=== PATIENT | male | born 1985 | race Caucasian/White ===

== ENCOUNTER 2017-02-08 19:58 | Emergency (ER) | payer MEDICAID ==
[~2017-02-08] VITALS: Ht 185.4 cm; Wt 136.1 kg
[~2017-02-08 19:58] MED LIST: CIPRO 500MG TA500 MG PO; DEMEROL HYDROCH50 MG PO; FLOMAX0.4 MG PO; NORCO 325 MG-51 TAB PO; PERCOCET 10 MG1 EACH PO; PHENERGAN 25MG.25 M1 PO; PREDNISONE 10MG10 MG PO; PROMETHAZINE HC25 M1 PO
[2017-02-08] MEDS ORDERED: PREDNISONE 20MG20 MG PO (20:28)
[2017-02-08] MEDS ORDERED: KEFLEX 500MG.500 MG PO (20:28)
--- NOTE | 2017-02-08 20:32 | Emergency Room Report ---
History of Present Illness Time Seen by 2026 Presenting Problem in Triage Pt arrived:Walked Presenting Problem:C/O BUG BITE TO RIGHT SHOULDER THIS AM. C/O PAIN. ALSO REPORT 2 AREAS ON LEFT WRIST Onset of symptoms date/time:02/08/17/ or onset unknown for:MEDICAL HX UNKNOWN Treatment Prior to Arrival: [employer]IAN Provided by: Sepsis Risk Assessment: Temp: 98.9 B/P: 175/105 MAP: 128 Pulse: 74 Resp: 18 Recent fever? N Clinical Suspician of Infection? N Mental Status: 1 - Regular (Normal Baseline) Sepsis Risk:Low Sepsis Risk Have you (or family members/close friends) recently traveled outside the [place]? N If Yes, where/when: Have you had exposure to infectious disease within the past month? N TB? Other? Specify: Source patient, RN notes reviewed, family, old records Exam Limitations no limitations Comment insect bite lt wrist and rt scapular insect bite - no resp sx Cardiac Chest Pain Chest pain indicative of cardiac No Timing/Duration this evening Severity moderate ALLERGIES Coded Allergies: No Known Allergies (11/15/16) Home Medications Reported Medications No Known Home Medications History Medical History General CAD? No Angina: No RI: No Hypertension? No Hyperlipidemia? No CHF? No DVT? No PE? No COPD? No Asthma? No Anemia? No GERD? No Gastric ulcers? No GI Bleed? No Hernia? No Thyroid Problems? No Hypothyroidism? No CVA? No Seizures? No Diabetes? No Renal Insuffiency? No End Stage Renal Disease? No UTI? No Stones? No BPH? No GB Disease: No Nephritic Syndrome? No Asplenia? No Hepatitis? No Sickle Cell Disease? No Arthritis? No Migraines? No Cataracts? No Glaucoma? No MRSA? No HIV? No TB? No Anxiety? No Depression? No Cancer? No Immunization Hx DT/Tetanus 5-10 YRS Surgical Hx Previous Surgery?N Social History Smoking Hx Smoker: Current Every Day Smoker Tobacco: Yes Type Cigarettes Packs/day < 1 Pack Alcohol Alcohol: No Drugs none Review of Systems All Other Systems Reviewed and Negative Constitutional denies fever Eyes denies drainage ENT denies: ear discharge. Respiratory denies cough Cardiovascular denies palpitations Gastrointestinal denies vomiting Genitourinary denies: frequency. Musculoskeletal denies joint pain, denies joint swelling Skin see HPI, denies rash, other Psychiatric/Neurological denies headache, denies seizure Physical Exam Vital Signs Vital Signs Date Time Temp Pulse Resp B/P Pulse O2 O2 Flow FiO2 Ox Delivery Rate 02/08 2001 98.9 74 18 175/105 97 - WBC >12,000 or <4,000 or 10% bands? 2 or more SIRS Criteria Met? B/P:175/105 MAP:128 Creatinine >2.0? UA output<0.5ml/kg/hr for 2 hrs? Platelet count >100,000? Lactate >2.0mmol/1? INR >1.2 or PTT > than 60 sec? Evidence of Organ Dysfunction? Provider documented clinical suspician of infection? N Sepsis Criteria Count: 0 Sepsis Risk: Low Sepsis Risk General Appearance no apparent distress Eye Exam - bilateral eye PERRL, bilateral eye EOMI Ear, Nose, Throat normal ENT inspection Neck supple Respiratory Status No: respiratory distress. Cardiovascular regular rate/rhythm Peripheral Pulses Pulses normal Yes Extremities normal inspection Strength 4 Upper Ext (L), 4 Upper Ext (R), 4 Lower Ext (L), 4 Lower Ext (R) Neurologic alert, enamel applier II-XII nml as tested, no motor/sensory deficits Reflexes Reflexes normal No Mental status normal mood/affect Skin 3 insect bites noted with warmth but no abscess Medical Decision Making LABS/Meds/Orders Pt receiving controlled substance in ED? No Departure Departure Time of Disposition 2026 Disposition DC Home or Self Care(routine) Clinical Impression Primary Impression: Insect bite Qualifiers: Encounter type: initial encounter Qualified Code: W57.XXXA - Bitten or stung by nonvenomous insect and other nonvenomous arthropods, initial encounter Condition STABLE Patient Instructions DI for Insect Bites and Stings Additional Instructions use meds and see pcp for follow up Discharge Counseling Counseled pt/family regarding diagnosis, medications/RX, follow up needs Prescriptions Current Visit Scripts CEPHALEXIN (Keflex 500MG Capsule) 500 MG PO Q8H #21 CAP Prednisone (Prednisone 20MG) 20 MG PO BID #12 TAB ED Critical Care Critical Care No at 2031
--- OUTSIDE RECORDS SUMMARY | 2017-02-08 20:34 | External Medical Summary Rpt ---
Author Author , Organization [employer] Address Unknown Phone Unavailable Purpose Continuity of Care Document - through 2016 Problems Code Diagnosis DOS Provider Status M25.511 PAIN IN RIGHT SHOULDER
--- OUTSIDE RECORDS SUMMARY | 2017-02-08 20:35 | External Medical Summary Rpt ---
Demographics Preferred Language Icelandic Marital Status Unknown Holiness Affiliation Unknown Race Unknown Ethnic Group Unknown Author Author , Organization [employer] Address Unknown Phone Unavailable Purpose Continuity of Care Document - through 2016 Immunization No patient found.
--- OUTSIDE RECORDS SUMMARY | 2017-02-08 20:35 | External Medical Summary Rpt ---
Author Author JENN Guerrero, [employer] Organization [employer] Address Unknown Phone Unavailable
--- OUTSIDE RECORDS SUMMARY | 2017-02-08 20:35 | External Medical Summary Rpt ---
Demographics Preferred Language Icelandic Marital Status Unknown Scientologist Affiliation Unknown Race Unknown Ethnic Group Unknown Author Author , Organization [employer] Address Unknown Phone Unavailable Purpose Continuity of Care Document - through 2016 Immunization No patient found.
[2017-02-08 20:39] VITALS: BP 147/103
== END 2017-02-08 21:01 | disposition home or self-care (01) ==
LOC: ER 19:58
DX: S40.261A Insect bite (nonvenomous) of right shoulder, initial encounter (principal); S60.861A Insect bite (nonvenomous) of right wrist, initial encounter

== ENCOUNTER 2017-03-15 19:19 | Inpatient (IN) | payer MEDICAID ==
[~2017-03-15] VITALS: Ht 185.4 cm; Wt 139.4 kg
[~2017-03-15 19:19] MED LIST changes: +KEFLEX 500MG.500 MG PO; +PREDNISONE 20MG20 MG PO
[2017-03-15 19:23] VITALS: BP 155/106
[2017-03-15 19:56] LABS: HEMOGLOBIN 17.7 g/dL (14.1-18.0); LYMPH # 2.8 K/mm3 (0.7-4.5); LYMPH % 39.4 % (10-50)
--- NOTE | 2017-03-15 20:07 | Emergency Room Report ---
History of Present Illness Time Seen by 2004 Presenting Problem in Triage Pt arrived:Walked Presenting Problem:PAIN IN LOWER BACK THAT RADIATES TO TESTICLES SINCE MONDAY. Onset of symptoms date/time:03/12/1701/21/2100 or onset unknown for: Treatment Prior to Arrival: [employer] Provided by: Sepsis Risk Assessment: Temp: 97.4 B/P: 155/106 MAP: 122 Pulse: 68 Resp: 20 Recent fever? N Clinical Suspician of Infection? N Mental Status: 1 - Regular (Normal Baseline) Sepsis Risk:Low Sepsis Risk Have you (or family members/close friends) recently traveled outside the [place]? N If Yes, where/when: Have you had exposure to infectious disease within the past month? N TB? Other? Specify: Comment Patient complains of RIGHT flank and right-sided abdominal pain that began on Monday. He says it feels like previous kidney stone that he had several years ago, which she had passed. He denies nausea, vomiting, fever, or urinary symptoms. No medications taken for the pain. Current pain is 8/10. Pain radiates to both testicles intermittently. He says he thinks he passed one stone earlier, but the pain never let up. ALLERGIES Coded Allergies: No Known Allergies (03/16/17) Home Medications Active Scripts CEPHALEXIN (Keflex 500MG Capsule) 500 MG PO Q8H #21 CAP Prov: 02/08/17 Prednisone (Prednisone 20MG) 20 MG PO BID #12 TAB Prov: 02/08/17 History Medical History General CAD? No Angina: No OR: No Hypertension? No Hyperlipidemia? No CHF? No DVT? No PE? No COPD? No Asthma? No Anemia? No GERD? No Gastric ulcers? No GI Bleed? No Hernia? No Thyroid Problems? No Hypothyroidism? No CVA? No Seizures? No Diabetes? No Renal Insuffiency? No End Stage Renal Disease? No UTI? No Stones? No BPH? No GB Disease: No Nephritic Syndrome? No Asplenia? No Hepatitis? No Sickle Cell Disease? No Arthritis? No Migraines? No Cataracts? No Glaucoma? No MRSA? No HIV? No TB? No Anxiety? No Depression? No Cancer? No Immunization Hx DT/Tetanus 5-10 YRS Surgical Hx Previous Surgery?N Social History Smoking Hx Smoker: Current Every Day Smoker Tobacco: Yes Type Cigarettes Packs/day 1 1/2 - 2 Packs Are you/the child exposed to second-hand smoke: Yes Alcohol Alcohol: No Review of Systems All Other Systems Reviewed and Negative Constitutional denies fever Gastrointestinal abdominal pain, denies nausea, denies vomiting Genitourinary denies: dysuria, frequency, hematuria. Physical Exam Vital Signs Vital Signs Date Time Temp Pulse Resp B/P Pulse O2 O2 Flow FiO2 Ox Delivery Rate 03/15 2326 97.2 66 18 135/81 93 03/15 2325 97.2 66 18 135/81 93 03/155 22 03/15 2241 97.4 55 22 150/102 95 03/15 2146 55 20 120/54 96 03/15 2144 20 03/15 2052 98.3 60 20 146/84 94 03/15 2041 20 03/15 2006 98.5 68 20 138/90 96 03/15 2002 20 03/15 1923 97.4 68 20 155/106 97 General Appearance no apparent distress, high BMI Eye Exam - bilateral eye normal exam, bilateral eye PERRL, bilateral eye EOMI Ear, Nose, Throat hearing grossly normal, normal ENT inspection Neck normal inspection, non-tender, supple, full range of motion Respiratory Status Yes: trachea midline, chest symmetrical, non tender chest. No: respiratory distress. Lung Sounds bilateral: normal breath sounds, lungs clear. Cardiovascular normal exam, regular rate/rhythm, no peripheral edema, no gallop, no JVD, no murmur, no rub, normal peripheral pulses Peripheral Pulses Pulses normal Yes Gastrointestinal normal bowel sounds, soft, no organomegaly, no guarding, no rebound, Generalized right-sided abdominal tenderness Back CVA tenderness (R) Extremities non-tender, normal range of motion, normal inspection Male Genitalia normal genitalia, no hernia, No tenderness or edema. Testicles in normal position. Neurologic alert, cleaner carpet and upholstery II-XII nml as tested, normal exam, oriented x 3 Mental status normal mood/affect Skin intact, normal color, warm/dry Medical Decision Making LABS/Meds/Orders Pt receiving controlled substance in ED? Yes Camron was queried for this patient? Yes Comment [id number] 1 rx. 10 norco on 11/15/16. Results/Orders Laboratory Tests 03/15/170: Urine Color YELLOW, Urine Appearance TURBID, Urine pH 6.0, Ur Specific [place] 1.025, Urine Protein NEGATIVE, Urine Ketones NEGATIVE, Urine Blood NEGATIVE, Urine Nitrate NEGATIVE, Urine Bilirubin NEGATIVE, Urine Urobilinogen 0.2, Ur Leukocyte Esterase NEGATIVE, Urine RBC NONE, Urine WBC NONE, Ur Squamous Epith Cells NONE, Urine Bacteria TRACE, Urine Glucose NEGATIVE 03/15/171944: BUN 9, Creatinine 0.8, Estimated Creat Clear 273 H, Estimated GFR (MDRD) 114 03/15/171944: Amylase 103, Lipase 1260 H 03/15/171944: Sodium 141, Potassium 3.9, Chloride 104, Carbon Dioxide 29, BUN 9, Creatinine 0.8, Estimated Creat Clear 273 H, Estimated GFR (MDRD) 114, Glucose 92, Calcium 9.4, Total Bilirubin 0.4, AST 23, ALT 40, Alkaline Phosphatase 91, Total Protein 8.3 H, Albumin 4.3, Globulin 4.0 H, Albumin/Globulin Ratio 1.1, WBC 7.2, RBC 5.50, Hgb 17.7, Hct 52.3 H, MCV 95.2, RDW 12.0, Plt Count 386, MPV 6.8 L, Gran % 50.4, Gran # 3.6, Lymphocytes % 39.4, Monocytes % 4.8, Eosinophils % 4.6, Basophils % 0.9, Lymphocytes # 2.8, Monocytes # 0.3, Eosinophils # 0.3, Basophils # 0.1, PUBS MCHC 33.8, MCH 32.2 H Current Medication Orders Sig/Caroline Start time Last Medication Dose Route Stop Time Status Admin Acetaminophen 650 MG Q4HP PRN 03/15 2300 UNV PO Hydromorphone HCl 1 MG Q4HP PRN 03/15 2300 UNV 03/16 IV 0039 Nicotine 21 MG DAILYP PRN 03/15 2300 UNV TD Ondansetron HCl 4 MG Q6HP PRN 03/15 2300 UNV IV Sodium Chloride 1,000 ML .Q6H40M 03/15 2300 UNV 03/15 IV 2355 Sodium Chloride 10 ML PRN PRN 03/15 2300 UNV IV Hydromorphone HCl 1 MG ONCE ONE 03/15 2245 DC 03/15 IV 03/15 Hydromorphone HCl 0 .STK-MED ONE 08/09 2244 DC .ROUTE Morphine Sulfate 4 MG ONCE ONE 03/15 2145 DC 03/15 IV 03/15 Morphine Sulfate 0 .STK-MED ONE 03/15 2143 DC .ROUTE Morphine Sulfate 4 MG ONCE ONE 03/15 2045 DC / IV 03/15 Ondansetron HCl 4 MG ONCE ONE 03/15 2045 DC 03/15 IV 03/15 Ondansetron HCl 0 .STK-MED ONE 03/15 2040 DC .ROUTE Morphine Sulfate 0 .STK-MED ONE 03/15 2039 DC .ROUTE Sodium Chloride 1,000 ML .Q1H1M 03/15 2030 DC 03/15 IV 03/15 Sodium Chloride 1,000 ML .STK-MED ONE 03/15 2020 DC IV Ketorolac 30 MG ONCE ONE 03/15 2000 DC 03/15 Tromethamine IV 03/15 Ketorolac 0 .STK-MED ONE 03/15 2000 DC Tromethamine .ROUTE Diatrizoate Meglum/ 30 ML ONCE ONE 03/15 1945 DC Diatrizoate Sod PO 03/15 1946 Diatrizoate Meglum/ 15 ML ONCE ONE 03/15 1945 DC Diatrizoate Sod PO 03/15 194 Orders Procedure Date/time Status DIET-NOTHING BY MOUTH 03/16 B Active LIPID PROFILE 03/16 06 Active LIPASE 03/16 06 Active AMYLASE 03/16 600 Active US GALLBLADDER (ABD LTD) 03/16 UNK Active PT IS SMOKER-DO SMOKE CESSAT. 03/15 2317 Active Decision to admit 03/15 2253 Active URINALYSIS/COMPLETE 03/15 2215 Complete CHEM 12 PROFILE 03/[address] ABD & PELVIS W/O CONTRAST 03/[address] ABD/PELVIS REQ 03/15 1934 Active IV SALINE LOCK 03/15 1934 Active LIPASE 03/15 1934 Complete CREATININE 03/15 1934 Complete CBC WITH AUTO DIFF 03/15 1934 Complete BUN 03/15 1934 Complete AMYLASE 03/15 1934 Complete ADMIT PATIENT 03/15 UNK Active VITAL SIGNS 03/15 UNK Active POM NURSE JESSIKA HOSE ORDER 03/15 UNK Active IV SALINE LOCK 03/15 UNK Active RECORD I & O 03/15 UNK Active CODE STATUS 03/15 UNK Active PATIENT ACTIVITY ORDER 03/15 UNK Active XRAY/CT/US XRAY/CT/US CT abdomen, pelvis Comment CT scan interpreted by ad radiologist. Faxed report received and reviewed: No acute findings. No ureteral calculi or hydronephrosis. Normal appendix. Normal pancreas and gallbladder. Progress - 10:40 PM: Workup negative except for elevated lipase. Patient is complaining of pain in his scrotum bilaterally. Unable to achieve pain control in the emergency department, he will need to be admitted. 10:48 PM: I have discussed the case with Dr. Castillo who agrees to admit the patient to the hospital. We discussed the patient's clinical information, including history, exam, laboratory and radiology results and ED course. Per hospital procedure, I will write temporary bridge inpatient orders on the patient. Specific orders requested by the admitting physician: IV fluids, recheck pancreatic enzymes, lipid profile. Gallbladder ultrasound Departure Departure Disposition Still a Patient Clinical Impression Primary Impression: Acute pancreatitis Qualifiers: Pancreatitis type: unspecified pancreatitis type Acute pancreatitis complication: no infection or necrosis Qualified Code: K85.90 - Acute pancreatitis without necrosis or infection, unspecified Secondary Impressions: Groin pain Qualifiers: Laterality: unspecified laterality Qualified Code: R10.30 - Lower abdominal pain, unspecified Right flank pain Right sided abdominal pain Condition STABLE ED Critical Care Critical Care No at 2986
[2017-03-15 22:20] LABS: URINE BILIRUBIN - DIPSTICK NEGATIVE (NEG); URINE BLOOD NEGATIVE (NEG)
[2017-03-16] VITALS (9 sets, daily range): BP systolic 124–150; BP diastolic 64–92
--- NOTE | 2017-03-16 07:14 | PHARMACY CLINIC NOTE ---
Patient Demographics Patient Demographics Admission date: 03/15/17 Date: 03/16/17 Time: 0714 Allergies Coded Allergies: No Known Allergies (03/16/17) HEIGHT- FT: 6 IN: 1.00 K.368 VTE General Information Labs: Laboratory Tests 03/15 1945 Hematology Hgb (14.1 - 18.0 g/dL) 17.7 Hct (42.0 - 52.0 %) 52.3 H Plt Count (142 - 424 K/mm3) 386 Disclaimer The following section includes nursing documentation that has been pulled in for pharmacy review. Patient's VTE score: 1 Patient's VTE Risk: VERY LOW RISK Clinical trial participant? No VTE prophylaxis [facility] 0371 VTE prophylaxis ordered? Yes Type of prophylaxis/treatment: JESSIKA at 0714
--- NOTE | 2017-03-16 07:14 | PHARMACY CLINIC NOTE ---
Patient Demographics Patient Demographics Admission date: 03/15/17 Date: 03/16/17 Time: 0714 Allergies Coded Allergies: No Known Allergies (03/16/17) HEIGHT- FT: 6 IN: 1.00 K.368 VTE General Information Labs: Laboratory Tests 03/15 1945 Hematology Hgb (14.1 - 18.0 g/dL) 17.7 Hct (42.0 - 52.0 %) 52.3 H Plt Count (142 - 424 K/mm3) 386 Disclaimer The following section includes nursing documentation that has been pulled in for pharmacy review. Patient's VTE score: 1 Patient's VTE Risk: VERY LOW RISK Clinical trial participant? No VTE prophylaxis [facility] 0371 VTE prophylaxis ordered? Yes Type of prophylaxis/treatment: JESSIKA at 0714
--- NOTE | 2017-03-16 08:30 | HISTORY AND PHYSICAL REPORT ---
Demographics: Admit date: 03/16/17 Chief complaint: right sided abdominal pain, scrotal pain PRIMARY DIAGNOSIS: ACUTE PANCREATITIS Allergies: Coded Allergies: No Known Allergies (03/16/17) History of present illness: History of present illness: 31-year-old white male presented to the ED last evening with RIGHT sided abdominal and scrotal pain. He reports pain started yesterday and increased in intensity over the course of the day. Denies nausea vomiting or diarrhea. No fevers. Denies dysuria, hematuria or other urinary symptoms. In the ED he was found to have an elevated lipase 1260. Otherwise his labs were unremarkable. CT abdomen showed no acute pathology. Patient was admitted to acute care for pain control and further evaluation. Today, patient reports he continues to have significant RIGHT sided abdominal and scrotal pain. He denies alcohol use, last drink was over 8 years ago. Triglycerides were normal. He takes approximately one Zantac per week for indigestion. No [id number] medications, herbals or supplements. No recent insect bites; however does report a spider bite approximately one month ago. Past medical history: Family HX Diabetes Yes CAD Yes Hypertension Yes Hyperlipidemia Yes Cancer Yes TB No Immunization HX DT/Tetanus 5-10 YRS Pneumonia Never Had TB Test in last year No General CAD? No Angina: No PR: No Hypertension? No Hyperlipidemia? No CHF? No DVT? No PE? No COPD? No Asthma? No Anemia? No GERD? No Gastric ulcers? No GI Bleed? No Hernia? No Thyroid Problems? No Hypothyroidism? No CVA? No Seizures? No Diabetes? No Renal Insuffiency? No UTI? No Stones? Yes BPH? No GB Disease: No Nephritic Syndrome? No Asplenia? No Hepatitis? No Sickle Cell Disease? No Arthritis? No Migraines? No Cataracts? No Glaucoma? No MRSA? No HIV? No TB? No Anxiety? No Depression? No Cancer? No Past Surgical HX Previous Surgery?N Social Hx: Smoking HX Tobacco Yes Type Cigarettes Packs/day 1 1/2 - 2 PACKS Are you/the child exposed to second-hand smoke: Yes Alcohol Alcohol: No Hx of Drug Use Drug Use? No Patient's support system is good Review of systems: Constitutional No: no symptoms reported. Eyes No: no symptoms reported. Ears, Nose, Mouth, Throat No no symptoms reported Respiratory No: no symptoms reported. Cardiovascular No no symptoms reported Gastrointestinal/Abdominal No abdomen distended, abdominal pain, No diarrhea, No nausea, No poor appetite, No rectal bleeding, No vomiting Genitourinary No: no symptoms reported. Musculoskeletal No: no symptoms reported. Skin No: no symptoms reported. Neurological No: no symptoms reported. Psychiatric No: no symptoms reported. Exam: Lab data for last 24 hours: Laboratory Tests 03/16/17 0630: Triglycerides 128, Cholesterol 163, LDL Cholesterol 108.4, VLDL Cholesterol 25.6 , HDL Cholesterol 29.0 L, Amylase 75, Lipase 579 H 03/15/170: Urine Color YELLOW, Urine Appearance TURBID, Urine pH 6.0, Ur Specific [place] 1.025, Urine Protein NEGATIVE, Urine Ketones NEGATIVE, Urine Blood NEGATIVE, Urine Nitrate NEGATIVE, Urine Bilirubin NEGATIVE, Urine Urobilinogen 0.2, Ur Leukocyte Esterase NEGATIVE, Urine RBC NONE, Urine WBC NONE, Ur Squamous Epith Cells NONE, Urine Bacteria TRACE, Urine Glucose NEGATIVE 03/15/171944: BUN 9, Creatinine 0.8, Estimated Creat Clear 273 H, Estimated GFR (MDRD) 114 03/15/171944: Amylase 103, Lipase 1260 H 03/15/171944: Sodium 141, Potassium 3.9, Chloride 104, Carbon Dioxide 29, BUN 9, Creatinine 0.8, Estimated Creat Clear 273 H, Estimated GFR (MDRD) 114, Glucose 92, Calcium 9.4, Total Bilirubin 0.4, AST 23, ALT 40, Alkaline Phosphatase 91, Total Protein 8.3 H, Albumin 4.3, Globulin 4.0 H, Albumin/Globulin Ratio 1.1, WBC 7.2, RBC 5.50, Hgb 17.7, Hct 52.3 H, MCV 95.2, RDW 12.0, Plt Count 386, MPV 6.8 L, Gran % 50.4, Gran # 3.6, Lymphocytes % 39.4, Monocytes % 4.8, Eosinophils % 4.6, Basophils % 0.9, Lymphocytes # 2.8, Monocytes # 0.3, Eosinophils # 0.3, Basophils # 0.1, PUBS MCHC 33.8, MCH 32.2 H Admission vital signs: 1ST Vital Signs Result Date Time Pulse Ox 97 03/15 1923 B/P 155/106 03/15 1923 Temp 97.4 03/15 1923 Pulse 68 03/15 1923 Resp 20 03/15 1923 O2 Delivery ROOM AIR 03/16 8 Exam General appearance: normal appearance, awake, no acute distress Eyes: anicteric ENT: mucous membranes moist Neck: normal inspection Cardiovascular: regular rate & rhythm, normal peripheral pulses Respiratory: clear to auscultation ABD: soft, non-distended. RUQ tenderness,no rebound, Normoactive Bowel sounds Genitourinary: no dysuria, no hematuria Extremities: moves all Musculoskeletal: equal muscle strength Skin: dry, intact, normal color Neuro: alert, intact, normal mood/affect, oriented, speech clear Plan: Problem List 1. Right sided abdominal pain Assessment/Plan He has significant RUQ tenderness on exam indicating the gallbladder may be the source of his pain which would explain his elevated lipase. However, given his history of kidney stones will obtain IVP as well as serum and urine uric acid levels to evaluate for uric acid stones which could explain his symptoms. 2. Elevated lipase Assessment/Plan Improving. Lipase 579 this morning. Plan: See above at 0830
[2017-03-16] MEDS ORDERED: NOMEDS XX (08:34)
--- NOTE | 2017-03-16 08:56 | RADIOLOGY REPORT PS360 ---
US GALLBLADDER (ABD LTD) HISTORY: abdo pain, elevated lipase ORDERING PHYSICIAN: James Castillo MD PATIENT AGE: 31 years COMPARISON: None FINDINGS: PANCREAS: Unremarkable. No obvious mass or abnormal fluid collection. No ductal dilatation LIVER: No focal liver lesions demonstrated. Homogeneous echogenicity. No intrahepatic biliary ductal dilatation evident. RIGHT KIDNEY: Unremarkable. Normal size and echogenicity. No hydronephrosis GALLBLADDER: No gallstones, gallbladder wall thickening, pericholecystic fluid, or biliary dilatation. Small amount sludge versus concentrated bile noted in the gallbladder. IMPRESSION: 1. No gallstones or wall thickening. 2. Small amount sludge versus concentrated bile in the gallbladder
--- NOTE | 2017-03-16 09:01 | RADIOLOGY REPORT PS360 ---
CT ABD PELVIS W/O CONTRAST CLINICAL INDICATION: Left flank pain KIDNEY STONES ORDERING PHYSICIAN: Lowell Shetty MD PATIENT AGE: 31 years COMPARISON: None TECHNIQUE: Axial images obtained with sagittal and coronal reformats. PROCEDURE: Oral Contrast: None IV Contrast: None . FINDINGS: Lower thorax: There is 4 mm nodule left lung base which appear stable. No acute finding in the lung bases. ABDOMEN: Liver: No masses or biliary dilatation. Gallbladder: Nondistended. No radio opaque stones. Pancreas: No masses or peripancreatic fluid collections. Spleen: Unremarkable. Adrenals: Unremarkable Kidneys/ureters: No masses. No renal calculi. No hydronephrosis. No perinephric fluid collections. No ureteral dilatation or obvious ureteral calculi. Stomach bowel: Nondistended. No obvious mass or thickening. Appendix: No evidence of appendicitis. Abdominal wall: Small umbilical hernia containing fat PELVIS: Reproductive: Unremarkable Bladder: Nondistended. No obvious stones or masses. ABDOMEN & PELVIS: Peritoneum: No abnormal fluid collections. No obvious inflammatory changes. No free air. Lymph nodes: No enlarged lymph nodes apparent. Vasculature: No evidence of abdominal aortic aneurysm. No retroperitoneal hemorrhage evident. Bones: No acute fracture IMPRESSION: Negative, no acute intra-abdominal or pelvic pathology apparent
--- OUTSIDE RECORDS SUMMARY | 2017-03-16 16:05 | External Medical Summary Rpt ---
Author Author , JENN BARAJAS Address Unknown Phone [email or web address] Care Team Providers Care Truck Assembler Name Role Phone [facility] Unavailable Unavailable CLINIC, [facility] Unavailable Unavailable [facility] Unavailable Unavailable [facility], [facility], Unavailable Unavailable [facility] TEX ELMER, TEX ELMER Unavailable Unavailable [facility], Unavailable [facility]available [facility], [facility] PETTEY, PETTEY Unavailable Unavailable RENUSCH, RENUSCH Unavailable Unavailable RUBIN KAILA, RUBIN Unavailable Unavailable KAIL[facility] Unavailable Unavailable EMERGENCY PHYS, [facility] Purpose Continuity of Care Document - 11-07-2013 through 2016 Problems Code Diagnosis DOS Provider Status [id number] INSECT BITE 02-08-2017 [facility] RT SHOULDER INITIAL ENC [id number] INSECT BITE 02-08-2017 [facility] OF LEFT WRIST INITIAL M7541 IMPINGEMENT 11-24-2016 [facility] SHOULDER [id number] PAIN IN 11-15-2016 [facility] RIGHT PHYSICIANS, SHOULDER PLLC 9181 SUPERFICIAL 03-30-2015 [facility] INJURY OF N EMERGENCY [place] PHYS E9288 OTHER 03-30-2015 [facility] ACCIDENT N EMERGENCY PHYS 7821 RASH AND 11-07-2013 [facility] OTHER MEDICAL NONSPECIFIC CLINIC SKIN ERUPTION K85.90 ACUTE PANCREATITI S WITHOUT NECROSIS OR INFECTION, UNSP M25.511 PAIN IN RIGHT SHOULDER R10.30 LOWER ABDOMINAL PAIN, UNSPECIFIED R10.9 UNSPECIFIED ABDOMINAL PAIN W57.XXXA BIT/STUNG BY NONVENOM INSECT \T\ OTH NONVENOM ARTHROPODS, INIT Medications Na ND Rx Da Fi Fi Am Da Di Ph RX Ph St me C No te ll ll ou ys ag ar # ys at rm s nt no ma ic us Or Da si cy ia de te s n re d CE 68 07 08 21 7 00 WA Ac PH 18 -0 -0 .0 00 L- ti AL 00 5- 4- 00 07 MA ve EX 12 20 20 41 RT IN 20 17 17 78 2 34 PH 50 AR 0 MA MG CY CA #4 PS 93 UL E UT 00 07 08 12 6 00 WA Ac ED 14 -0 -0 .0 00 L- ti NI 39 5- 4- 00 07 MA ve SO 73 20 20 41 RT NE 80 17 17 78 5 35 PH 20 AR MA MG CY TA #4 BL 93 ET HY 00 04 05 [address] 40 -1 -0 .0 00 L- ti OC 60 1- 5- 00 02 MA ve OD 12 20 20 23 RT ON 30 17 17 60 -A 1 26 PH CE AR TA MA NE CY NO PH #4 EN 93 5- 32 5 UT 59 04 05 27 7 00 WA Ac ED 74 -1 -0 .0 00 L- ti NI 60 1- 5- 00 07 MA ve SO 17 20 20 40 RT NE 30 17 17 33 6 69 PH 10 AR MA MG CY TA #4 BL 93 ET Results Labs Lab Lab Date Result Refere Interp Status Commen Order Detail nces retati t Range on Urinalysis dipstick W Reflex Microscopic panel in Urine (03-15-2017 21:40) Bacteri TRACE O complet a 017 ed [Presen 21:40 ce] in Urine sedimen t by Light microsc opy Erythro NONE 0 complet cytes 017 ed [Presen 21:40 ce] in Urine sedimen t by Light microsc opy Epithel NONE OCC complet ial 017 ed cells.s 21:40 quamous [Presen ce] in Urine sedimen t by Microsc opy high power field Urinalysis dipstick W Reflex Microscopic panel in Urine (03-15-2017 21:40) Appeara TURBID CLEAR complet nce of 017 ed Urine 21:40 Bilirub NEGATIV NEG complet in 017 E ed [Presen 21:40 ce] in Urine by Test strip Erythro NEGATIV NEG complet cytes 017 E ed [Presen 21:40 ce] in Urine Color YELLOW YELLOW complet of 017 ed Urine 21:40 Ketones NEGATIV NEG complet 017 E ed [Presen 21:40 ce] in Urine by Automat ed test strip Mucus 08-09-2 NEGATIV NEG complet [Presen 017 E ed ce] in 21:40 Urine sedimen t by Light microsc opy Nitrite NEGATIV NEG complet 017 E ed [Presen 21:40 ce] in Urine by Test strip Urobili 0.2 NEG complet nogen 017 ed [Presen 21:40 ce] in Urine by Test strip Procedures Procedure DOS Code Location Performer Comment INJ J0702 [facility] 7 PHYSICIAN SONE S GROUP ACETATE & PHOSPHATE 3 MG ARTHROCEN [facility] TESIS 7 PHYSICIAN ASPIR&/IN S GROUP J MAJOR JT/BURSA W/O US RADEX 20332 [facility] SHOULDER 7 [facility] COMPLETE INC INC MINIMUM 2 VIEWS Encounters Encounter Start End Date Code Location Performer Type Date EMERGENCY 03002 [facility] 7 7 PHYSICIAN [facility] S [facility] T VISIT MODERATE SEVERITY OFFICE 98191 [facility] OUTPATIEN 7 7 PHYSICIAN T NEW 20 S GROUP MINUTES EMERGENCY 59415 [facility] 7 7 [facility] VIS[facility] HIGH/URGE NT SEVERITY EMERGENCY 02797 [facility] 7 7 [facility] INC T VISIT LOW/MODER SEVERITY HOSPITAL [facility] - 7 7 [facility] OUTPATIEN INC T EMERGENCY 34426 [facility] 5 5 [facility]REE [facility] EMERGENCY T VISIT PHYS MODERATE SEVERITY OFFICE 28716 [facility]AN NICE [facility] OUTPATIEN 4 4 MEDICAL T NEW 30 CLINIC MINUTES
--- OUTSIDE RECORDS SUMMARY | 2017-03-16 16:05 | External Medical Summary Rpt ---
Author Author , JENN BARAJAS Address Unknown Phone [email or web address], [email or web address]! Care Team Providers Care Customer Leader Name Role Phone [facility] Unavailable Unavailable CLINIC, [facility] Unavailable Unavailable [facility] Unavailable Unavailable INC, [facility], Unavailable Unavailable [facility] TEX ELMER, TEX ELMER Unavailable Unavailable [facility], Unavailable Unavailable [facility], [facility] PETTEY, PETTEY Unavailable Unavailable RENUSCH, RENUSCH Unavailable Unavailable RUBIN KAILA, RUBIN Unavailable Unavailable [facility] Unavailable Unavailable EMERGENCY PHYS, [facility] Purpose Continuity of Care Document - 11-07-2013 through 2016 Problems Code Diagnosis DOS Provider Status [id number] INSECT BITE 02-08-2017 [facility] RT SHOULDER INITIAL ENC [id number] INSECT BITE 02-08-2017 [facility] OF LEFT WRIST INITIAL M7541 IMPINGEMENT 11-24-2016 [facility] SHOULDER B39238 PAIN IN 11-15-2016 [facility] RIGHT PHYSICIANS, SHOULDER PLLC 9181 SUPERFICIAL 03-30-2015 [facility] INJURY OF N EMERGENCY [place] PHYS E9288 OTHER 03-30-2015 [facility] ACCIDENT N EMERGENCY PHYS 7821 RASH AND 11-07-2013 [facility] OTHER MEDICAL NONSPECIFIC CLINIC SKIN ERUPTION K85.90 [...] CY CA #4 PS 93 UL E CA 00 07 08 12 6 00 WA [...] 1 26 PH CE AR TA MA ID CY NO PH #4 EN 93 5- 32 5 CA 59 04 05 27 7 00 WA [...] DOS Code Location Performer Comment INJ J0702 [facility] BET[facility] 7 PHYSICIAN SONE S GROUP ACETATE & PHOSPHATE 3 MG ARTHROCEN [facility] TESIS 7 PHYSICIAN ASPIR&/IN S GROUP J MAJOR JT/BURSA W/O US RADEX 42767 [facility] CERVANT[facility] SHOULDER 7 [facility] COMPLETE INC INC MINIMUM 2 VIEWS Encounters Encounter Start End Date Code Location Performer Type Date EMERGENCY 34292 [facility] 7 7 PHYSICIAN [facility] PLL[facility] T VISIT MODERATE SEVERITY OFFICE 02463 [facility] OUTPATIEN 7 7 PHYSICIAN T NEW 20 S GROUP MINUTES EMERGENCY 96465 [facility] 7 7 [facility] T VISIT HIGH/URGE NT SEVERITY EMERGENCY 35108 [facility] 7 7 [facility] INC T VISIT LOW/MODER SEVERITY HOSPITAL [facility] - 7 7 [facility] OUTPATIEN INC T EMERGENCY 25353 [facility] 5 5 [facility] EMERGENCY T VISIT PHYS MODERATE SEVERITY OFFICE 28887 ARSLAN NICE [facility] OUTPATIEN 4 4 MEDICAL T NEW 30 CLINIC MINUTES
--- OUTSIDE RECORDS SUMMARY | 2017-03-16 16:06 | External Medical Summary Rpt ---
Author Author , JENN BARAJAS Address Unknown Phone [email or web address] Care Team Providers Care Hand Tennis Ball Coverer Name Role Phone TITUS, TITUS Unavailable Unavailable [facility] Unavailable Unavailable CLINIC, [facility] Unavailable Unavailable [facility] Unavailable Unavailable INC, [facility], Unavailable Unavailable [facility] TEX ELMER, NICE ELMER Unavailable Unavailable [facility], Unavailable Unavailable [facility], [facility] PETTEY, PETTEY Unavailable Unavailable RENUSCH, RENUSCH Unavailable Unavailable SCOTTIE KAILA, SCOTTIE Unavailable Unavailable [facility] Unavailable Unavailable EMERGENCY PHYS, [facility] EMERG[facility] Purpose Continuity of Care Document - 11-07-2013 through 2016 Problems Code Diagnosis DOS Provider Status [id number] INSECT BITE 02-08-2017 [facility] RT SHOULDER INITIAL ENC [id number] INSECT BITE 02-08-2017 [facility] OF LEFT WRIST INITIAL M7541 IMPINGEMENT 11-24-2016 [facility]ANS OF RIGHT GROUP SHOULDER [id number] PAIN IN 11-15-2016 [facility], SHOULDER PLLC 9181 SUPERFICIAL 03-30-2015 [facility] INJURY OF N EMERGENCY [place] PHYS E9288 OTHER 03-30-2015 [facility] ACCIDENT N EMERGENCY PHYS 7821 RASH AND 11-07-2013 [facility] OTHER MEDICAL NONSPECIFIC CLINIC SKIN ERUPTION Medications Na ND Rx Da Fi Fi [...] CY CA #4 PS 93 UL E AR 00 07 08 12 6 00 WA [...] 1 26 PH CE AR TA MA CA CY NO PH #4 EN 93 5- 32 5 AR 59 04 05 27 7 00 WA Ac ED 74 -1 -0 .0 00 L- ti NI 60 1- 5- 00 07 MA ve SO 17 20 20 40 RT NE 30 17 17 33 6 69 PH 10 AR MA MG CY TA #4 BL 93 ET Procedures Procedure DOS Code Location Performer Comment INJ J0702 [facility] BETAMETHA 7 PHYSICIAN SONE S GROUP ACETATE & PHOSPHATE 3 MG ARTHROCEN 96115 [facility] TESIS 7 PHYSICIAN ASPIR&/IN S GROUP J MAJOR JT/BURSA W/O US RADEX 84431 [facility] SHOULDER 7 MEDICAL COMPLETE IMAGING MINIMUM 2 ASS VIEWS Encounters Encounter Start End Date Code Location Performer Type Date EMERGENCY 07795 [facility] 7 7 PHYSICIAN [facility]ANE[facility] S PLLC T VISIT MODERATE SEVERITY OFFICE 57221 [facility] AYESHA OUTPATIEN 7 7 PHYSICIAN T NEW 20 S GROUP MINUTES HOSPITAL [facility] - 7 7 [facility] OUTPATIEN INC T EMERGENCY 27729 [facility] 7 7 [facility] DEPARTMEN INC T VISIT LOW/MODER SEVERITY EMERGENCY 43022 [facility] 7 7 PHYSICIAN DEPARTMEN S, PLLC T VISIT HIGH/URGE NT SEVERITY EMERGENCY 73137 [facility] 5 5 [facility] T VISIT PHYS MODERATE SEVERITY OFFICE 25527 A[facility]LAN NICE [facility] OUTPATIEN 4 4 MEDICAL T NEW 30 CLINIC MINUTES
--- OUTSIDE RECORDS SUMMARY | 2017-03-16 16:06 | External Medical Summary Rpt ---
Author Author BENJIDI [employer], JENN [employer] Organization [employer] Address Unknown Phone Unavailable Results Amylase [Enzymatic activity/volume] in Serum or Plasma Observa Value Referen Units Interpr Notes Date tion ce etation Range Amylase 25 - 115 U/L Normal No Mar 16 [Enzymati informati 2017 6:30 c on in AM activity/ source volume] data in Serum or Plasma Lipase [Enzymatic activity/volume] in Serum or Plasma Observa Value Referen Units Interpr Notes Date ti ce etation Range Lipase 73 - 393 U/L High No Mar 16 [Enzymati informati 2017 6:30 c on in AM activity/ source volume] data in Serum or Plasma Lipid 1996 panel in Serum or Plasma Observa Value Referen Units Interpr Notes Date tion ce etation Range Cholester < 200 mg/dL No No Mar 16 ol informati informati 2017 6:30 [Moles/vo on in on in AM lume] in source source Unspecifi data data ed specimen Cholester 40 - 60 MG/DL Low No Mar 16 ol in HDL informati 2017 6:30 on in AM [Mass/vol source ume] in data Serum or Plasma Cholester 0 - 130 mg/dL Normal No Mar 16 ol in LDL informati 2016 6:30 on in AM [Mass/vol source ume] in data Serum or Plasma by calculati on Triglycer 30 - 200 mg/dL Normal No Mar 16 jake informati 2017 6:30 [Moles/vo on in AM lume] in source Serum or data Plasma Cholester 0 - 40 No Normal No Mar 16 ol in informati informati 2017 6:30 VLDL on in on in AM [Mass/vol source source ume] in data data Serum or Plasma Urinalysis dipstick W Reflex Microscopic panel in Urine Observa Value Referen Units Interpr Notes Date tion ce etation Range Appeara TURBID CLEAR No No No Mar 15 nce of informa informa informa 2017 Urine tion in tion in tion in 9:40 PM source source source data data data Bacteri TRACE O No No No Mar 15 a informa informa informa 2016 [Presen tion in tion in tion in 9:40 PM ce] in source source source Urine data data data sedimen t by Light microsc opy Bilirub NEGATIV NEG No No No Mar 15 in E informa informa informa 2016 [Presen tion in tion in tion in 9:40 PM ce] in source source source Urine data data data by Test strip Erythro NEGATIV NEG No No No Mar 15 cytes E informa informa informa 2016 [Presen tion in tion in tion in 9:40 PM ce] in source source source Urine data data data Color YELLOW YELLOW No No No Mar 15 of informa informa informa 2016 Urine tion in tion in tion in 9:40 PM source source source data data data Glucose NEG No No No Mar 15 [Mass/vol informati informati informati 2017 9:40 ume] in on in on in on in PM Urine by source source source Test data data data strip Ketones NEGATIV NEG mg/dL No No Mar 15 E informa informa 2016 [Presen tion in tion in 9:40 PM ce] in source source Urine data data by Automat ed test strip Mucus NEGATIV NEG No No No Mar 15 [Presen E informa informa informa 2016 ce] in tion in tion in tion in 9:40 PM Urine source source source sedimen data data data t by Light microsc opy Nitrite NEGATIV NEG No No No Mar 15 E informa informa informa 2016 [Presen tion in tion in tion in 9:40 PM ce] in source source source Urine data data data by Test strip pH of 5.0 - 8.5 No Normal No Mar 15 Urine informati informati 2017 9:40 on in on in PM source source data data Protein NEG mg/dL No No Mar 15 [Mass/vol informati informati 2016 9:40 ume] in on in on in PM Urine by source source Automated data data test strip Erythro NONE 0 rbc/hpf No No Mar 15 cytes informa informa 2016 [Presen tion in tion in 9:40 PM ce] in source source Urine data data sedimen t by Light microsc opy Specific 1.005 - No Normal No Mar 15 gravity 1.030 informati informati 2017 9:40 of Urine on in on in PM source source data data Epithel NONE OCC #/hpf No No Mar 15 ial informa informa 2017 cells.s tion in tion in 9:40 PM quamous source source data data [Presen ce] in Urine sedimen t by Microsc opy high power field Urobili 0.2 NEG E.U./dL No No Mar 15 nogen informa informa 2016 [Presen tion in tion in 9:40 PM ce] in source source Urine data data by Test strip Leukocyte O wbc/hpf No No Mar 15 s informati informati 2017 9:40 [#/volume on in on in PM ] in source source Urine data data Urinalysis dipstick W Reflex Microscopic panel in Urine Observa Value Referen Units Interpr Notes Date tion ce etation Range Appeara TURBID CLEAR No No No Mar 15 nce of informa informa informa 2017 Urine tion in tion in tion in 9:40 PM source source source data data data Bilirub NEGATIV NEG No No No Mar 15 in E informa informa informa 2016 [Presen tion in tion in tion in 9:40 PM ce] in source source source Urine data data data by Test strip Erythro NEGATIV NEG No No No Mar 15 cytes E informa informa informa 2016 [Presen tion in tion in tion in 9:40 PM ce] in source source source Urine data data data Color YELLOW YELLOW No No No Mar 15 of informa informa informa 2017 Urine tion in tion in tion in 9:40 PM source source source data data data Glucose NEG No No No Mar 15 [Mass/vol informati informati informati 2017 9:40 ume] in on in on in on in PM Urine by source source source Test data data data strip Ketones NEGATIV NEG mg/dL No No Mar 15 E informa informa 2016 [Presen tion in tion in 9:40 PM ce] in source source Urine data data by Automat ed test strip Mucus NEGATIV NEG No No No Mar 15 [Presen E informa informa informa 2016 ce] in tion in tion in tion in 9:40 PM Urine source source source sedimen data data data t by Light microsc opy Nitrite NEGATIV NEG No No No Mar 15 E informa informa informa 2016 [Presen tion in tion in tion in 9:40 PM ce] in source source source Urine data data data by Test strip pH of 5.0 - 8.5 No Normal No Mar 15 Urine informati informati 2017 9:40 on in on in PM source source data data Protein NEG mg/dL No No Mar 15 [Mass/vol informati informati 2017 9:40 ume] in on in on in PM Urine by source source Automated data data test strip Specific 1.005 - No Normal No Mar 15 gravity 1.030 informati informati 2016 9:40 of Urine on in on in PM source source data data Urobili 0.2 NEG E.U./dL No No Mar 15 nogen informa informa 2016 [Presen tion in tion in 9:40 PM ce] in source source Urine data data by Test strip Comprehensive metabolic 2000 panel in Serum or Plasma Observa Value Referen Units Interpr Notes Date tion ce etation Range Albumin/G 1.1 - 1.8 No Normal No Mar 15 lobulin informati informati 2017 7:45 [Mass on in on in PM ratio] in source source Serum or data data Plasma Albumin 3.4 - 5.0 gm/dL Normal No Mar 15 [Mass/vol informati 2017 7:45 ume] in on in PM Serum or source Plasma data Alkaline 46 - 116 U/L Normal No Mar 15 phosphata informati 2017 7:45 se on in PM [Enzymati source c data activity/ volume] in Serum or Plasma Bilirubin 0.2 - 1.0 mg/dL Normal No Mar 15 .total informati 2017 7:45 [Mass/vol on in PM ume] in source Serum or data Plasma Urea 7 - 18 mg/dL Normal No Mar 15 nitrogen informati 2017 7:45 [Mass/vol on in PM ume] in source Serum or data Plasma Calcium 8.5 - mg/dL Normal No Mar 15 [Mass/vol 10.1 informati 2017 7:45 ume] in on in PM Serum or source Plasma data Chloride 98 - 107 mmoL/L Normal No Mar 15 [Moles/vo informati 2017 7:45 lume] in on in PM Serum or source Plasma data Carbon 21.0 - mmoL/L Normal No Mar 15 dioxide, 32.0 informati 2016 7:45 total on in PM [Moles/vo source lume] in data Serum or Plasma Creatinin 0.70 - mg/dL Normal No Mar 15 e 1.30 inform2016 7:45 [Mass/vol on in PM ume] in source Serum or data Plasma Creatinin 50 - 200 ML/MIN High No Mar 15 e renal informati 2016 7:45 clearance on in PM source predicted data by Cockcroft -Gault formula Estimated >60 ML/MIN No REFERENCE Mar 15 informati RANGE: 2017 7:45 glomerula on in >60 PM r source ML/MIN/1. filtratio data 73 SQUARE n rate METERSIf (GF this patient is -A merican, then multiply theresult by 1.210. Globulin 1.3 - 3.2 gm/dL High No Mar 15 [Mass/vol informati 2016 7:45 ume] in on in PM Serum source data Glucose 74 - 106 mg/dL Normal Mar 15 [Mass/vol informati 2016 7:45 ume] in on in PM Serum or source Plasma data Potassium 3.5 - 5.1 mmoL/L Normal No Mar 152016 7:45 [Moles/vo on in PM lume] in source Serum or data Plasma Sodium 136 - 145 mmoL/L Normal No Mar 15 [Moles/vo ati 2016 7:45 lume] in on in PM Serum or source Plasma data Aspartate 15 - 37 U/L Normal No Mar 15 informati 2016 7:45 aminotran on in PM sferase source [Enzymati data c activity/ volume] in Serum or Plasma Alanine 12 - 78 U/L Normal No Mar 15 aminotran ati 2016 7:45 sferase on in PM [Enzymati source c data activity/ volume] in Serum or Plasma Protein 6.4 - 8.2 gm/dL High No Mar 15 [Mass/vol informati 2016 7:45 ume] in on in PM Serum or source Plasma data Amylase [Enzymatic activity/volume] in Serum or Plasma Observa Value Referen Units Interpr Notes Date tion ce etation Range Amylase 25 - 115 U/L Normal No Mar 15 [Enzymati informati 2016 7:45 c on in PM activity/ source volume] data in Serum or Plasma Lipase [Enzymatic activity/volume] in Serum or Plasma Observa Value Referen Units Interpr Notes Date tion ce etation Range Lipase 73 - 393 U/L High Mar 15 [Enzymati NOTIFICAT 2017 7:45 c ION PM activity/ RESULT volume] in Serum or Plasma Urea nitrogen [Mass/volume] in Serum or Plasma Observa Value Referen Units Interpr Notes Date tion ce etation Range Urea 7 - 18 mg/dL Normal No Mar 15 nitrogen informati 2016 7:45 [Mass/vol on in PM ume] in source Serum or data Plasma CREATININE Observa Value Referen Units Interpr Notes Date tion ce etation Range Creatinin 0.70 - mg/dL Normal No Mar 15 e 1.30 informati 2016 7:45 [Mass/vol on in PM ume] in source Serum or data Plasma Creatinin 50 - 200 ML/MIN High No Mar 15 e renal informati 2016 7:45 clearance on in PM source predicted data by Cockcroft -Gault formula Estimated >60 ML/MIN No REFERENCE Mar 15 informati RANGE: 2017 7:45 glomerula on in >60 PM r source ML/MIN/1. filtratio data 73 SQUARE n rate METERSIf (GF this patient is -A merican, then multiply theresult by 1.210. CBC W Auto Differential panel in Blood Observa Value Referen Units Interpr Notes Date ti ce etation Range Basophils 0 - 0.2 K/MM3 Normal No Mar 15 informati 2016 7:45 [#/volume on in PM ] in source Blood by data Automated count Basophils 0.1 - 2.0 % Normal No Mar 15 informati 2016 7:45 leukocyte on in PM s in source Blood by data Automated count Eosinophi 0.0 - 0.4 K/mm3 Normal No Mar 15 ls informati 2016 7:45 [#/volume on in PM ] in source Blood by data Automated count Eosinophi 0.1 - % Normal No Mar 15 ls/100 12.0 informati 2016 7:45 leukocyte on in PM s in source Blood by data Automated count Granulocy 1.3 - 8.0 K/mm3 Normal No Mar 15 aixa informati 2016 7:45 [#/volume on in PM ] in source Blood by data Automated count Granulocy 37.0 - % Normal No Mar 15 aixa 80.0 informati 2016 7:45 leukocyte on in PM s in source Blood by data Automated count Hematocri 42.0 - % High No Mar 15 t [Volume 52.0 informati 2016 7:45 on in PM Fraction] source of Blood data Hemoglobi 14.1 - g/dL Normal No Mar 15 n 18.0 informati 2016 7:45 [Mass/vol on in PM ume] in source Blood data Lymphocyt 0.7 - 4.5 K/mm3 Normal Mar 15 es informati 2016 7:45 [#/volume on in PM ] in source Unspecifi data ed specimen by Automated count Lymphocyt 10 - 50 % Normal No Mar 15 es informati 2017 7:45 [#/volume on in PM ] in source Unspecifi data ed specimen by Automated count Erythrocy 27 - 31.2 pg High No Mar 15 te mean informati 2016 7:45 corpuscul on in PM ar source hemoglobi data n [Entitic mass] Erythrocy 31.8 - g/dl Normal Mar 15 te mean 35.4 informati 2016 7:45 corpuscul on in PM ar source hemoglobi data n concentra tion [Mass/vol ume] by Automated count Erythrocy 82.2 - fl Normal No Mar 15 te mean 97.8 informati 2017 7:45 corpuscul on in PM ar volume source [Entitic data volume] by Automated count Monocytes 0.1 - 1.0 K/mm3 Normal No Mar 15 informati 2017 7:45 [#/volume on in PM ] in source Blood by data Automated count Monocytes 1.7 - 9.3 % Normal No Mar 15 /100 informati 2017 7:45 leukocyte on in PM s in source Blood by data Automated count Platelet 7.4 - fl Low No Mar 15 mean 10.4 informati 2017 7:45 volume on in PM [Entitic source volume] data in Blood by Automated count Platelets 142 - 424 K/mm3 Normal No Mar 15 informati 2017 7:45 [#/volume on in PM ] in source Blood data Erythrocy 4.6 - 6.2 M/mm3 Normal No Mar 15 aixa informati 2017 7:45 [#/volume on in PM ] in source Amniotic data fluid Erythrocy 11.5 - % Normal No Mar 15 te 17.5 informati 2016 7:45 distribut on in PM ion width source [Entitic data volume] by Automated count Leukocyte 4.8 - K/MM3 Normal No Mar 9 s 10.8 informati 2017 7:45 [#/volume on in PM ] in source Blood data
--- OUTSIDE RECORDS SUMMARY | 2017-03-16 16:06 | External Medical Summary Rpt ---
Demographics Preferred Language Urdu Marital Status Unknown Anabaptism Affiliation Unknown Race Unknown Ethnic Group Unknown Author Author JENN Address Unknown Phone Immunization No patient found.
--- OUTSIDE RECORDS SUMMARY | 2017-03-16 16:06 | External Medical Summary Rpt ---
Author Author , JENN BARAJAS Address Unknown Phone [email or web address] Care Team Providers Care Candy Separator Enrobing Name Role Phone TITUS, TITUS Unavailable Unavailable [facility] Unavailable Unavailable CLINIC, [facility] Unavailable Unavailable [facility] Un[facility] Unavailable [facility], [facility], Unavailable Unavailable [facility] TEX ELMER, NICE ELMER Unavailable Unavailable [facility], Unavailable Unavailable PLL[facility], [facility] PETTEY, PETTEY Unavailable Unavailable RENUSCH, RENUSCH Unavailable Unavailable SCOTTIE KAILA, SCOTTIE Unavailable Unavailable [facility] Unavailable Unavailable EMERGENCY PHYS, [facility] Purpose Continuity of Care Document - 11-07-2013 through 2016 Problems Code Diagnosis DOS Provider Status [id number] INSECT BITE 02-08-2017 [facility] NONVENOMOUS PLLC RT SHOULDER INITIAL ENC [id number] INSECT BITE 02-08-2017 [facility] NON[facility]OMOUS PLL[facility] OF LEFT WRIST INITIAL 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 [id number] PAIN IN 11-15-2016 [facility] SH[facility]ER PLLC 9181 SUPERFICIAL 03-30-2015 [facility] INJURY OF N EMERGENCY [place] PHYS E9288 OTHER 03-30-2015 [facility] ACCIDENT N EMERGENCY PHYS 7821 RASH AND 11-07-2013 [facility] OTHER MEDICAL NONSPECIFIC CLINIC SKIN ERUPTION [...] CY CA #4 PS 93 UL E VA 00 07 08 12 6 00 WA [...] 1 26 PH CE AR TA MA ND CY NO PH #4 EN 93 5- 32 5 VA 59 04 05 27 7 00 WA Ac ED 74 -1 -0 .0 00 L- ti NI 60 1- 5- 00 07 MA ve SO 17 20 20 40 RT NE 30 17 17 33 6 69 PH 10 AR MA MG CY TA #4 BL 93 ET Procedures Procedure DOS Code Location Performer Comment INJ J0702 [facility] PETTEY BETAMETHA 7 PHYSICIAN SONE S GROUP ACETATE & PHOSPHATE 3 MG ARTHROCEN 98700 [facility] PETTEY TESIS 7 PHYSICIAN ASPIR&/IN S GROUP J MAJOR JT/BURSA W/O US RADEX 53665 [facility] SHOULDER 7 MEDICAL COMPLETE IMAGING MINIMUM 2 ASS VIEWS Encounters Encounter Start End Date Code Location Performer Type Date EMERGENCY 49700 [facility] 7 7 PHYSICIAN JANEEN S PLLC T VISIT MODERATE SEVERITY OFFICE 17402 [facility] AYESHA OUTPATIEN 7 7 PHYSICIAN T NEW 20 S GROUP MINUTES HOSPITAL [facility] - 7 7 [facility] OUT[facility]EN INC T EMERGENCY 56841 [facility] 7 7 [facility] DEPARTMEN INC T VISIT LOW/MODER SEVERITY EMERGENCY 45812 [facility] 7 7 PHYSICIAN DEPARTMEN S, PLLC T VISIT HIGH/URGE NT SEVERITY EMERGENCY 39012 [facility] 5 5 [facility]REE [facility] T VISIT PHYS MODERATE SEVERITY OFFICE 30999 ARSLAN NICE [facility] OUTPATIEN 4 4 MEDICAL T NEW 30 CLINIC MINUTES
--- OUTSIDE RECORDS SUMMARY | 2017-03-16 16:06 | External Medical Summary Rpt ---
Demographics Preferred Language Kinyarwanda Marital Status Unknown Druze Affiliation Unknown Race Unknown Ethnic Group Unknown Author Author JENN Address Unknown Phone Immunization No patient found.
--- OUTSIDE RECORDS SUMMARY | 2017-03-16 17:12 | External Medical Summary Rpt ---
Author Author , JENN BARAJAS Address Unknown Phone [email or web address] [facility] Care Team Providers Care Search Engine Optimizer Name Role Phone TITUS QURESHI Unavailable Unavailable [facility] Unavailable Unavailable CLINIC, [facility] [place] Unavailable Unavailable [facility] Unavailable Unavailable INC, [facility], Unavailable Unavailable [facility] TEX ELMER, NICE ELMER Unavailable Unavailable [facility], Unavailable Unavailable PLL[facility], [facility] PETTEY, PETTEY Unavailable Unavailable RENUSCH, RENUSCH Unavailable Unavailable RUBIN KAILA, RUBIN Unavailable Unavailable [facility] Unavailable Unavailable EMERGENCY PHYS, [facility] Purpose Continuity of Care Document - 11-07-2013 through 2016 Problems Code Diagnosis DOS Provider Status [id number] INSECT BITE 02-08-2017 [facility] NONVENOMOUS PLLC RT SHOULDER INITIAL ENC [id number] INSECT BITE 02-08-2017 [facility] NONVENOMOUS PLLC OF LEFT WRIST INITIAL 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 B35482 PAIN IN 11-15-2016 [facility] SH[facility]ER PLL[facility] 9181 SUPERFICIAL 03-30-2015 [facility] INJURY OF N EMERGENCY [place] PHYS E9288 OTHER 03-30-2015 [facility] ACCIDENT N EMERGENCY PHYS 7821 RASH AND 11-07-2013 [facility] OTHER MEDICAL NONSPECIFIC CLINIC SKIN ERUPTION K85.90 [...] CY CA #4 PS 93 UL E CO 00 07 08 12 6 00 WA [...] 1 26 PH CE AR TA MA ME CY NO PH #4 EN 93 5- 32 5 CO 59 04 05 27 7 00 WA [...] Urine by Automat ed test strip Mucus NEGATIV NEG complet [Presen 017 E ed ce] in 21:40 Urine sedimen t by Light microsc opy Nitrite NEGATIV NEG complet 017 E ed [Presen 21:40 ce] in Urine by Test strip Urobili 0.2 NEG complet nogen 017 ed [Presen 21:40 ce] in Urine by Test strip Procedures Procedure DOS Code Location Performer Comment INJ J0702 [facility] PETTEY BETAMETHA 7 PHYSICIAN SONE S GROUP ACETATE & PHOSPHATE 3 MG ARTHROCEN [facility] PETTEY TESIS 7 PHYSICIAN ASPIR&/IN S GROUP J MAJOR JT/BURSA W/O US RADEX 72430 [facility] [facility] SHOULDER 7 MEDICAL COMPLETE IMAGING MINIMUM 2 ASS VIEWS Encounters Encounter Start End Date Code Location Performer Type Date EMERGENCY 70788 [facility] T VISIT MODERATE SEVERITY OFFICE 17985 [facility] OUTPATIEN 7 7 PHYSICIAN T NEW 20 S GROUP MINUTES EMERGENCY 03046 [facility] 7 7 [facility] DEPARTMEN INC T VISIT LOW/MODER SEVERITY EMERGENCY 42138 [facility] 7 7 PHYSICIAN DEPARTMEN S, PLLC T VISIT HIGH/URGE NT SEVERITY HOSPITAL [facility] - 7 7 [facility] OUTPATIEN INC T EMERGENCY 35565 [facility] 5 5 BREE [facility] EMERGENCY T VISIT PHYS MODERATE SEVERITY OFFICE 92129 ARSLAN NICE [facility] OUTPATIEN 4 4 MEDICAL T NEW 30 CLINIC MINUTES
--- OUTSIDE RECORDS SUMMARY | 2017-03-16 17:12 | External Medical Summary Rpt ---
Author Author , JENN BARAJAS Address Unknown Phone [email or web address] Care Team Providers Care Lap Grinder Name Role Phone TITUS QURESHI Unavailable Unavailable [facility] Unavailable Unavailable CLINIC, [facility] [place] [facility] Unavailable Unavailable [facility] Unavailable Unavailable INC, [facility], Unavailable Unavailable [facility] TEX ELMER, NICE ELMER Unavailable Unavailable [facility], Unavailable Unavailable PLLC, [facility] PETTEY, PETTEY Unavailable Unavailable RENUSCH, RENUSCH Unavailable Unavailable RUBIN KAILA, RUBIN Unavailable Unavailable [facility] Unavailable Unavailable EMERGENCY PHYS, [facility] Purpose Continuity of Care Document - 11-07-2013 through 2016 Problems Code Diagnosis DOS Provider Status [id number] INSECT BITE 02-08-2017 [facility] NONVENOMOUS PLLC RT SHOULDER INITIAL ENC [id number] INSECT BITE 02-08-2017 [facility] NONVENOMOUS PLLC OF LEFT WRIST INITIAL 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 F37579 PAIN IN 11-15-2016 [facility] SH[facility] PLLC 9181 SUPERFICIAL 03-30-2015 [facility] INJURY OF N EMERGENCY [place] PHYS E9288 OTHER 03-30-2015 [facility] ACCIDENT N EMERGENCY PHYS 7821 RASH AND 11-07-2013 [facility] OTHER MEDICAL NONSPECIFIC CLINIC SKIN ERUPTION [...] CY CA #4 PS 93 UL E MI 00 07 08 12 6 00 WA [...] 1 26 PH CE AR TA MA MO CY NO PH #4 EN 93 5- 32 5 MI 59 04 05 27 7 00 WA [...] DOS Code Location Performer Comment INJ J0702 [facility] BETAMETHA 7 PHYSICIAN SONE S GROUP ACETATE & PHOSPHATE 3 MG ARTHROCEN [facility] PET[facility] TESIS 7 PHYSICIAN ASPIR&/IN S GROUP J MAJOR JT/BURSA W/O US RADEX 18066 [place] [facility] SHOULDER 7 MEDICAL COMPLETE IMAGING MINIMUM 2 ASS VIEWS Encounters Encounter Start End Date Code Location Performer Type Date EMERGENCY 66518 [facility] 7 7 [facility] T VISIT MODERATE SEVERITY OFFICE 92778 [facility] OUTPATIEN 7 7 PHYSICIAN T NEW 20 S GROUP MINUTES EMERGENCY 35670 [facility] 7 7 [facility] DEPARTMEN INC T VISIT LOW/MODER SEVERITY EMERGENCY 24490 [facility] 7 7 PHYSICIAN DEPARTMEN S, PLLC T VISIT HIGH/URGE NT SEVERITY HOSPITAL [facility] - 7 7 [facility] OUTPATIEN INC T EMERGENCY 14462 [facility] 5 5 BREE [facility] EMERGENCY T VISIT PHYS MODERATE SEVERITY OFFICE 97340 ARSLAN NICE [facility] OUTPATIEN 4 4 MEDICAL T NEW 30 CLINIC MINUTES
--- OUTSIDE RECORDS SUMMARY | 2017-03-16 17:13 | External Medical Summary Rpt ---
Demographics Preferred Language Maori Marital Status Unknown Congregational Affiliation Unknown Race Unknown Ethnic Group Unknown Author Author JENN Address Unknown Phone Immunization No patient found.
--- OUTSIDE RECORDS SUMMARY | 2017-03-16 17:13 | External Medical Summary Rpt ---
Author Author , JENN BARAJAS Address Unknown Phone [email or web address] Care Team Providers Care Nurse Navigator Name Role Phone TITUS, TITUS Unavailable Unavailable [facility] Unavailable Unavailable CLINIC, [facility] [place] Unavailable Unavailable [facility] Unavailable Unavailable INC, [facility], Unavailable Unavailable [facility] TEX ELMER, NICE ELMER Unavailable Unavailable [facility], Unavailable Unavailable PLLC, [facility] PETTEY, PETTEY Unavailable Unavailable RENUSCH, RENUSCH Unavailable Unavailable SCOTTIE KAILA, SCOTTIE Unavailable Unavailable [facility] Unavailable Unavailable EMERGENCY PHYS, [facility] Purpose Continuity of Care Document - 11-07-2013 through 2016 Problems Code Diagnosis DOS Provider Status [id number] INSECT BITE 02-08-2017 [facility] NONVENOMOUS PLLC RT SHOULDER INITIAL ENC L03180M INSECT BITE 02-08-2017 [facility] NONVENOMOUS PLLC OF LEFT WRIST INITIAL 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 B37583 PAIN IN 11-15-2016 [facility] SHOULDER PLLC 9181 SUPERFICIAL 03-30-2015 [facility] INJURY OF N EMERGENCY [place] PHYS E9288 OTHER 03-30-2015 [facility] ACCIDENT N EMERGENCY PHYS 7821 RASH AND 11-07-2013 [facility] OTHER MEDICAL NONSPECIFIC CLINIC SKIN ERUPTION [...] 1 26 PH CE AR TA MA TN CY NO PH #4 EN 93 5- [...] Procedures Procedure DOS Code Location Performer Comment ARTHROCEN 13605 [facility] TESIS 7 PHYSICIAN ASPIR&/IN S GROUP J MAJOR JT/BURSA W/O US INJ J0702 [facility] BETAMETHA 7 PHYSICIAN SONE S GROUP ACETATE & PHOSPHATE 3 MG RADEX 21017 [facility] SHOULDER 7 MEDICAL COMPLETE IMAGING MINIMUM 2 ASS VIEWS Encounters Encounter Start End Date Code Location Performer Type Date EMERGENCY 48315 [facility] 7 7 PHYSICIAN JANEEN S PLLC T VISIT MODERATE SEVERITY OFFICE 38956 [facility] AYESHA OUTIGNACIO 7 7 PHYSICIAN T NEW 20 S GROUP MINUTES HOSPITAL [facility] - 7 7 [facility]EN INC T EMERGENCY 19963 [facility] 7 7 [facility]PART[facility] INC T VISIT LOW/MODER SEVERITY EMERGENCY 51755 [facility] 7 7 PHYSICIAN DEPARTMEN S, PLLC T VISIT HIGH/URGE NT SEVERITY EMERGENCY 61277 [facility] 5 5 [facility] T VISIT PHYS MODERATE SEVERITY OFFICE 88144 [facility]RSLAN [facility] OUTPATIEN 4 4 MEDICAL T NEW 30 CLINIC MINUTES
--- OUTSIDE RECORDS SUMMARY | 2017-03-16 17:13 | External Medical Summary Rpt ---
Author Author , JNEN BARAJAS Address Unknown Phone [email or web address] Care Team Providers Care Putty Remover Name Role Phone TITUS, TITUS Unavailable Unavailable [facility] Unavailable Unavailable CLINIC, [facility] [place] [facility] Unavailable Unavailable [facility] Unavailable Unavailable INC, [facility], Unavailable Unavailable [facility] TEX ELMER, NICE ELMER Unavailable Unavailable [facility], Unavailable Unavailable PLLC, [facility] PETTEY, PETTEY Unavailable Unavailable RENUSCH, RENUSCH Unavailable Unavailable SCOTTIE KAILA, SCOTTIE Unavailable Unavailable [facility] Unavailable Unavailable EMERGENCY PHYS, [facility] Purpose Continuity of Care Document - 11-07-2013 through 2016 Problems Code Diagnosis DOS Provider Status [id number] INSECT BITE 02-08-2017 [facility], NONVENOMOUS PLLC RT SHOULDER INITIAL ENC [id number] INSECT BITE 02-08-2017 [facility] NONVENOMOUS PLLC OF LEFT WRIST INITIAL 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 G94236 PAIN IN 11-15-2016 [facility] SHOULDER PLLC 9181 SUPERFICIAL 03-30-2015 [facility] INJURY OF N EMERGENCY [place] PHYS E9288 OTHER 03-30-2015 [facility] ACCIDENT N EMERGENCY PHYS 7821 RASH AND 11-07-2013 [facility] OTHER MEDICAL NONSPECIFIC CLINIC SKIN ERUPTION [...] CY CA #4 PS 93 UL E RI 00 07 08 12 6 00 WA [...] 1 26 PH CE AR TA MA OK CY NO PH #4 EN 93 5- 32 5 RI 59 04 05 27 7 00 WA Ac ED 74 -1 -0 .0 00 L- ti NI 60 1- 5- 00 07 MA ve SO 17 20 20 40 RT NE 30 17 17 33 6 69 PH 10 AR MA MG CY TA #4 BL 93 ET Procedures Procedure DOS Code Location Performer Comment ARTHROCEN 11312 [facility] PETTEY TESIS 7 PHYSICIAN ASPIR&/IN S GROUP J MAJOR JT/BURSA W/O US INJ J0702 [facility] PETTEY BETAMETHA 7 PHYSICIAN SONE S GROUP ACETATE & PHOSPHATE 3 MG RADEX 37182 [facility] SHOULDER 7 MEDICAL COMPLETE IMAGING MINIMUM 2 ASS VIEWS Encounters Encounter Start End Date Code Location Performer Type Date EMERGENCY 20759 [facility] 7 7 PHYSICIAN JANEEN S PLLC T VISIT MODERATE SEVERITY OFFICE 80754 [facility] AYESHA OUTIGNACIO 7 7 PHYSICIAN T NEW 20 S GROUP MINUTES HOSPITAL [facility] - 7 7 [facility] OUTPATIEN INC T EMERGENCY 50511 [facility] 7 7 [facility] DEPARTMEN INC T VISIT LOW/MODER SEVERITY EMERGENCY 70383 [facility] 7 7 PHYSICIAN DEPARTMEN S, PLLC T VISIT HIGH/URGE NT SEVERITY EMERGENCY 48867 [facility] 5 5 [facility] VISIT PHYS MODERATE SEVERITY OFFICE 58852 ARSLAN [facility] OUTPATIEN 4 4 MEDICAL T NEW 30 CLINIC MINUTES
--- OUTSIDE RECORDS SUMMARY | 2017-03-16 17:13 | External Medical Summary Rpt ---
Demographics Preferred Language Kazakh Marital Status Unknown Rastafari Affiliation Unknown Race Unknown Ethnic Group Unknown Author Author JENN Address Unknown Phone Immunization No patient found.
[2017-03-17 04:41] VITALS: BP 123/75
--- NOTE | 2017-03-17 07:42 | ACUTE CARE PROGRESS NOTE (QUA) ---
Progress Notes Subjective Date 03/17/17 Time 0740 Note Overall patient feels a little better, unfortunately had epigastric and right- sided flank pain with eating ice cream last night. Is tolerating bowel prep fairly well. No vomiting, no fevers. Labs reviewed this morning as noted below. Abdomen is soft except for mild epigastric tenderness. Lungs are clear, heart rate regular. No murmurs. No periumbilical or flank bruising. Objective Findings Laboratory Tests 03/17/17 0637: Amylase 86, Lipase 643 H 03/17/17 0637: Sodium 141, Potassium 4.2, Chloride 106, Carbon Dioxide 31, BUN 8, Creatinine 0.9, Estimated Creat Clear 237 H, Estimated GFR (MDRD) 99, Glucose 86, Calcium 8.5, Total Bilirubin 0.4, AST 21, ALT 42, Alkaline Phosphatase 78, Total Protein 6.9, Albumin 3.7, Globulin 3.2, Albumin/Globulin Ratio 1.2 Last VS-Temp:97.9 B/P:123/75 Pulse:48 Resp:18 SaO2:97 ROOM AIR Last weight lbs:307 oz:4 K.368 Method:Bed Scales Assessment/Plan Problem List 1. Right sided abdominal pain 2. Elevated lipase 3. Acute pancreatitis Qualifiers: Pancreatitis type: unspecified pancreatitis type Acute pancreatitis complication: no infection or necrosis Qualified Code: K85.90 - Acute pancreatitis without necrosis or infection, unspecified Patient condition Stable Plan: continue current care, plan will be to check IVP to make sure we don't have radiolucent stones, and then continue clear liquids. If patient tolerates clears may be able to discharge home with clears and by mouth pain medication and workup this very unusual pancreatitis with MRCP and HIDA scan as an outpatient. This inpt stay is expected to cross 2 MNs from start of care Yes at 0742
[2017-03-17 08:00] VITALS: BP 131/73
[2017-03-17 09:00] VITALS: BP 131/73
[2017-03-17 09:36] LABS: LYMPH # 2.9 K/mm3 (0.7-4.5); LYMPH % 45.8 % (10-50)
--- NOTE | 2017-03-17 12:29 | RADIOLOGY REPORT PS360 ---
IVP--W/O ALEJANDRA CLINICAL INDICATION: right abdominal pain, h/o kidney stones ORDERING PHYSICIAN: James Castillo MD PATIENT AGE: 31 years COMPARISON: CT scan of 03/15/2017 FINDINGS: Warehouse Receiving Supervisor exam is unremarkable. Multiple images obtained following the intravenous administration of 100 mL's of Isovue-370. Kidneys are normal size shape and position. There is no evidence of obstructive uropathy. The ureters have an unremarkable appearance. Unremarkable appearing urinary bladder. There is only minimal amount of post for residual urine within the bladder. IMPRESSION: Negative IVP
[2017-03-17] MEDS ORDERED: NORCO 325 MG-101 TAB PO (15:36)
[2017-03-17] MEDS ORDERED: ZOFRAN4 MG PO (15:36)
--- NOTE | 2017-03-17 15:36 | DISCHARGE SUMMARY STANDARD ---
Demographics Admit date: 03/16/17 Discharge date: 03/17/17 History of present illness History of present illness 31-year-old white male presented to the ED last evening with RIGHT sided abdominal and scrotal pain. He reports pain started yesterday and increased in intensity over the course of the day. Denies nausea vomiting or diarrhea. No fevers. Denies dysuria, hematuria or other urinary symptoms. In the ED he was found to have an elevated lipase 1260. Otherwise his labs were unremarkable. CT abdomen showed no acute pathology. Patient was admitted to acute care for pain control and further evaluation. Today, patient reports he continues to have significant RIGHT sided abdominal and scrotal pain. He denies alcohol use, last drink was over 8 years ago. Triglycerides were normal. He takes approximately one Zantac per week for indigestion. No qzej-[id number]-wbpxzdu medications, herbals or supplements. No recent insect bites; however does report a spider bite approximately one month ago. Hospital Course Hospital Course: Patient was admitted as noted above, workup for pancreatitis ensued. Triglycerides normal. Ultrasound of gallbladder normal. CT scan of abdomen showed no evidence of biliary ductal dilatation. Lipase improved, liver enzymes and amylase remained normal. White count and calcium levels were also normal. Patient clinically improved somewhat. Given his history of kidney stones and the characterization of his pain, IVP was performed to evaluate radiolucent stones, which was also negative. Pancreatitis was final diagnosis. Patient has done well today on oral pain medications and clear liquids and wishes to be discharged home. He will be discharged on hydrocodone tablets for the acute pain. He will be given enough pain medication supplies for 5 days given the chronicity of his pancreatitis and follow-up that is needed at the physician listed on his Medicaid card. Follow-up has been arranged at that clinic. He will need evaluation for HIDA scan of gallbladder and MRCP to evaluate the causes of his pancreatitis. Discharge diagnoses Problem List 1. Right sided abdominal pain 2. Elevated lipase 3. Acute pancreatitis Medications Medications: Discharge meds are as noted. Follow up Follow up in office in: 4 DAYS with: GRIFFIN BLANK at 1709
[2017-03-17 16:00] VITALS: BP 149/98
[2017-03-17 16:35] VITALS: BP 136/86
== END 2017-03-17 17:14 | disposition home or self-care (01) | DRG 440 ==
LOC: ER 19:19 → 2ND 22:51 → ER 22:51 → 2ND 22:53
PROVIDERS: Emergency Medicine; Internal Medicine Adolescent Medicine
DX: K85.90 Acute pancreatitis without necrosis or infection, unspecified (principal); Z72.0 Tobacco use
CPT/HCPCS: J2405; Q9967

== ENCOUNTER → 2017-03-21 | Outpatient (CLI) | payer MEDICAID ==
[~2017-03-21] MED LIST changes: +NOMEDS XX; +NORCO 325 MG-101 TAB PO; +ZOFRAN4 MG PO
[2017-03-21 12:22] LABS: LYMPH # 1.7 K/mm3 (0.7-4.5); LYMPH % 23.2 % (10-50)
[2017-03-21 12:33] LABS: HEMOGLOBIN 17.3 g/dL (14.1-18.0)
[2017-03-21 14:12] LABS: BUN 10 mg/dL (7-18); PROSTATE-SPECIFIC AG SCREEEN 0.6 ng/mL (0.0-4.0)
[2017-03-21 14:21] LABS: GFR (ESTIMATED) 99 ML/MIN (>60)
== END ==
LOC: LAB 11:56
PROVIDERS: Physician Assistant
DX: K85.90 Acute pancreatitis without necrosis or infection, unspecified (principal); N50.819 Testicular pain, unspecified
CPT/HCPCS: G0103